=== PATIENT | female | born 1980 | race Caucasian/White ===

== ENCOUNTER → 2016-12-19 | Outpatient (CLI) | payer BC, OTHER ==
[~2016-12-19] MED LIST: CALC500C3; OXYC-57 PO; PEPCID
[2016-12-19 18:48] LABS: URINE APPEARANCE CLEAR (CLEAR); URINE BILIRUBIN NEG (NEG); URINE COLOR YELLOW; URINE NITRITE NEG (NEG); URINE SPECIFIC GRAVITY 1.027 (1.000-1.030); UROBILINOGEN NEG (NEG)
[2016-12-19 18:57] LABS: MANUAL MICROSCOPIC REQUIRED? NO; REVIEW REQ? NO
[2016-12-22 00:16] LABS: CHLAMYDIA TRACH RNA*** NOT DETECTED (NOT DETECTED); GC (NEIS GONORRHOEAE)RNA** NOT DETECTED (NOT DETECTED)
== END | disposition home or self-care (01) ==
LOC: C.LABSPEC 17:42
PROVIDERS: ATTEND Obstetrics & Gynecology
DX: R10.2 Pelvic and perineal pain (principal); N89.8 Other specified noninflammatory disorders of vagina; R35.0 Frequency of micturition

== ENCOUNTER 2017-05-19 20:36 | Emergency (ER) | payer OTHER ==
[~2017-05-19] VITALS: Ht 170.2 cm; Wt 85.9 kg
[~2017-05-19 20:36] MED LIST changes: -OXYC-57 PO
[2017-05-19 20:42] VITALS: TEMP 36.8; Ht 170.2 cm; Wt 85.9 kg
[2017-05-19] MEDS ORDERED: OPTIRAY 320 IV PRN (21:30)
[2017-05-19 21:39] LABS: BASO % 0.2 %; BASO ABS # 0.03 K/uL (0-0.2); COMPLETE YES; EOS % 0.2 %; HEMATOCRIT 39.5 % (37-47); IG% 0.3 %; LYMPH % 19.4 %; LYMPH ABS # 2.42 K/uL (1.2-3.4); MEAN CELL VOLUME 87.6 fL (80-100); MEAN CORPUSCULAR HEMOGLOBIN 28.8 pg (25-34); MEAN CORPUSCULAR HGB CONC 32.9 g/dl (32-36); MEAN PLATELET VOLUME 10.4 fL (7.4-10.4); MONO % 5.3 %; NEUT % 74.6 %; PLATELET COUNT 305 K/uL (130-400); RED BLOOD COUNT 4.51 M/uL (4.2-5.4); WHITE BLOOD COUNT 12.49 K/uL (4.8-10.8)
[2017-05-19 21:57] LABS: ISTAT CREATININE 0.6 mg/dl (0.6-1.3); ISTAT HEMOGLOBIN 13.6 g/dl (12.0-16.0); ISTAT IONIZED CALCIUM 1.16 mmol/l (1.12-1.32)
[2017-05-19 22:01] LABS: BUN/CREATININE RATIO 21.5 (10-20); CALCIUM 9.1 mg/dl (8.5-10.1); CREATININE 0.72 mg/dl (0.60-1.20); POTASSIUM 3.8 mmol/L (3.5-5.1)
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
[2017-05-19 23:07] VITALS: BP 129/70; PULSE 72; O2SAT 99
[2017-05-19] MEDS ORDERED: SODIUM CHLORIDE 0.9% 500ML 500 ML IV STA (23:07)
[2017-05-19] MEDS ORDERED: OXYC-57 PO (23:08)
[2017-05-19] MEDS ORDERED: PERCOCET HOME PACK PO ONE (23:15)
== END 2017-05-19 23:49 | disposition home or self-care (01) ==
LOC: C.EDB 20:38 → C.EDC 23:49
DX: M54.2 Cervicalgia (principal); S62.652A Nondisplaced fracture of middle phalanx of right middle finger, initial encounter for closed fracture; M79.645 Pain in left finger(s); Y04.2XXA Assault by strike against or bumped into by another person, initial encounter; Y04.8XXA Assault by other bodily force, initial encounter; Y07.03 Male partner, perpetrator of maltreatment and neglect; R52 Pain, unspecified

== ENCOUNTER → 2017-11-30 | Outpatient (CLI) | payer OTHER ==
[2017-11-30 12:08] LABS: BASO % 0.2 %; BASO ABS # 0.02 K/uL (0-0.2); EOS % 1.3 %; EOS ABS # 0.12 K/uL (0-0.5); HEMATOCRIT 39.1 % (37-47); HEMOGLOBIN 13.4 g/dL (12.0-16.0); IG# 0.05 K/uL (0.00-0.02); LYMPH % 20.9 %; LYMPH ABS # 1.86 K/uL (1.2-3.4); MEAN CELL VOLUME 86.1 fL (80-100); MEAN CORPUSCULAR HEMOGLOBIN 29.5 pg (25-34); MEAN CORPUSCULAR HGB CONC 34.3 g/dl (32-36); MEAN PLATELET VOLUME 11.1 fL (7.4-10.4); MONO % 5.3 %; MONO ABS # 0.47 K/uL (0.11-0.59); NEUT % 71.7 %; NEUT ABS # 6.37 K/uL (1.4-6.5); PLATELET COUNT 264 K/uL (130-400); RED CELL DISTRIBUTION WIDTH CV 13.6 % (11.5-14.5); RED CELL DISTRIBUTION WIDTH SD 42.9 fL (36.4-46.3); WHITE BLOOD COUNT 8.89 K/uL (4.8-10.8)
[2017-11-30 12:23] LABS: HEMOGLOBIN A1C 5.3 % (4.5-5.6)
== END | disposition home or self-care (01) ==
LOC: C.LAB1850 10:48
PROVIDERS: ATTEND Obstetrics & Gynecology
DX: O09.521 Supervision of elderly multigravida, first trimester (principal); Z3A.00 Weeks of gestation of pregnancy not specified

== ENCOUNTER → 2017-11-30 | Outpatient (CLI) | payer OTHER | END | disposition home or self-care (01) | LOC: C.LABSPEC 14:43 → C.PAPS 14:43 | PROVIDERS: ATTEND Obstetrics & Gynecology | DX: O09.521 Supervision of elderly multigravida, first trimester (principal); Z3A.00 Weeks of gestation of pregnancy not specified ==

== ENCOUNTER 2017-12-20 08:51 | Inpatient (IN) | payer OTHER ==
[2017-12-20] VITALS (7 sets, daily range): BP systolic 109–136; BP diastolic 70–80; PULSE 100–111; TEMP 37.4–38.9; O2SAT 96–100; Ht 170.2 cm; Wt 94.8 kg
[~2017-12-20] VITALS: Ht 170.2 cm; Wt 94.8 kg
[2017-12-20] MEDS ORDERED: ACETAMINOPHEN IV 100 ML IV STA (09:15)
[2017-12-20] MEDS ORDERED: MoRPHine SULFATE 10 MG/ML CARP/VIAL IV STA ×2 (09:15→10:56)
[2017-12-20] MEDS ORDERED: SODIUM CHLORIDE 0.9% 1000ML 1,000 ML IV STA ×3 (09:15→10:00)
--- NOTE | 2017-12-20 09:16 | EMERGENCY ROOM VISIT NOTE ---
History Report prepared by Miguelito: Jairo Benson Under the Supervision of: Dr. David Stanton M.D. First contact with patient: 09:05 Chief Complaint: ABDOMINAL PAIN Stated Complaint: TO BE EVALED IN ER, 4 MONTHS PREG, THINKS IN LABOR Nursing Triage Summary: pt is 4 months yesterday pt developed abd cramping this am became severe no vaginal discharge nausea for 2 months pt reports "feels like labor" History of Present Illness The patient is a 37 year old female who presents to the Emergency Room with complaints of severe and worsening abdominal pain that began yesterday. The patient notes that her abdominal pain began yesterday, and worsened significantly this morning. She describes her abdominal pain as a "cramping" sensation. The patient is currently 4 months in her 5th . She is P:4 A:0. She states that this cramping is not like she has experienced in the past. She denies any unusual vaginal bleeding, but admits that she has been light headed. She had a appendectomy when she was young. Source of History: patient Onset: yesterday Position: abdomen Symptom Intensity: severe Quality: cramping Timing: worsening Note: Lightheadedness, 4 months . Review of Systems See HPI for pertinent positives & negatives. A total of 10 systems reviewed and were otherwise negative. Past Medical & Surgical Medical Problems: (1) Abdominal pain (2) Postcoital bleeding (3) Supervision of elderly multigravida in third trimester (>=35 years old at time of delivery) Family History No pertinent family history Social History Smoking Status: Never Smoker Marital Status: single Housing Status: lives with family Current/Historical Medications No Active Prescriptions or Reported Meds Allergies Coded Allergies: No Known Allergies (Verified , 12/20/17) Physical Exam Vital Signs Date Time Temp Pulse Resp B/P (MAP) Pulse Ox O2 Delivery O2 Flow Rate FiO2 12/20/17 11:59 119 19 119/75 99 Room Air 12/20/17 11:37 119 12/20/17 09:57 102 22 131/68 100 12/20/17 08:59 37.9 118 20 121/72 100 Room Air Physical Exam GENERAL: Patient is a healthy-appearing well-nourished female. In mild distress. HEAD: Normocephalic atraumatic EYES: Ocular movements intact pupils equal and react to light OROPHARYNX mucous membranes are moist no exudates present no erythema or edema present NECK: Supple no nuchal rigidity CHEST: Good equal expansion LUNGS: Clear and equal to auscultation CARDIAC: Normal S1 and S2 ABDOMEN: Soft with tenderness to the suprapubic area. no guarding BACK: No CVA tenderness EXTREMITIES: No pain upon palpation normal muscle strength in all groups no clubbing cyanosis or edema NEURO: Patient is following commands and answering questions appropriately. Alert and oriented x3 Cranial Nerves 2-12 grossly intact Medical Decision & Procedures ER Provider Diagnostic Interpretation: Radiology results as stated below per my review and radiologist interpretation: CHEST ONE VIEW PORTABLE HISTORY: 37 years-old Female Pt c/o sepsis acute sepsis COMPARISON: None available TECHNIQUE: Portable AP view of the chest FINDINGS: Cardiomediastinal and hilar silhouettes are within normal limits. There is no pneumothorax, pleural effusion, focal airspace consolidation or overt pulmonary edema. The bones of the chest appear grossly intact. Mild degenerative changes of the left AC joint. IMPRESSION: No acute process. The above report was generated using voice recognition software. It may contain grammatical, syntax or spelling errors. Electronically signed by: Zach Watson M.D. 12/20/2017 10:41 AM Dictated Date/Time: 12/20/2017 10:40 AM LIMITED (US) CLINICAL HISTORY: 37 years-old Female presenting with Pt feels is in labor, estimated date of delivery by last menstrual period 06/15/2018, no bleeding, cramping. TECHNIQUE: Real-time grayscale and M-mode Doppler ultrasound imaging of the pelvis was performed using a transabdominal probe. Color and spectral Doppler ultrasound imaging of the adnexa was not performed as the ovaries were not visualized. COMPARISON: 12/05/2017. FINDINGS: Uterus: Single live intrauterine . Femur length measures 14 mm corresponding to a gestational age of 14 weeks 1 day. [place]-rump length measures 83 mm corresponding to a gestational age of 14 weeks 1 day. heart rate 154 beats per minute. Anteverted uterus. Normal amniotic fluid volume. Posterior placental implantation. No perigestational fluid to suggest hemorrhage. Cervix long and closed, measuring 4.6 cm. Right adnexa: Right ovary not visualized. Left adnexa: Left ovary not visualized. Other: No free fluid. IMPRESSION: Single live intrauterine with an estimated gestational age of 14 weeks 1 day. No sonographic abnormality. Electronically signed by: Gumaro Posada M.D. 12/20/2017 10:29 AM Dictated Date/Time: 12/20/2017 10:26 AM Laboratory Results 12/20/17 09:31 Red Blood Count 4.31, Mean Corpuscular Volume 85.6, Mean Corpuscular Hemoglobin 29.9, Mean Corpuscular Hemoglobin Concent 35.0, Mean Platelet Volume 9.9, Neutrophils (%) (Auto) 88.9, Lymphocytes (%) (Auto) 5.6, Monocytes (%) (Auto) 4.7, Eosinophils (%) (Auto) 0.3, Basophils (%) (Auto) 0.1, Neutrophils # (Auto) 16.32, Lymphocytes # (Auto) 1.02, Monocytes # (Auto) 0.86, Eosinophils # (Auto) 0.05, Basophils # (Auto) 0.02 12/20/17 09:31 Test 12/20/17 00:00 12/20/17 09:31 12/20/17 09:35 12/20/17 09:42 White Blood Count 18.35 K/uL (4.8-10.8) Red Blood Count 4.31 M/uL (4.2-5.4) Hemoglobin 12.9 g/dL (12.0-16.0) Hematocrit 36.9 % (37-47) Mean Corpuscular Volume 85.6 fL (80-100) Mean Corpuscular Hemoglobin 29.9 pg (25-34) Mean Corpuscular Hemoglobin Concent 35.0 g/dl (32-36) Platelet Count 202 K/uL (130-400) Mean Platelet Volume 9.9 fL (7.4-10.4) Neutrophils (%) (Auto) 88.9 % Lymphocytes (%) (Auto) 5.6 % Monocytes (%) (Auto) 4.7 % Eosinophils (%) (Auto) 0.3 % Basophils (%) (Auto) 0.1 % Neutrophils # (Auto) 16.32 K/uL (1.4-6.5) Lymphocytes # (Auto) 1.02 K/uL (1.2-3.4) Monocytes # (Auto) 0.86 K/uL (0.11-0.59) Eosinophils # (Auto) 0.05 K/uL (0-0.5) Basophils # (Auto) 0.02 K/uL (0-0.2) RDW Standard Deviation 43.7 fL (36.4-46.3) RDW Coefficient of Variation 13.9 % (11.5-14.5) Immature Granulocyte % (Auto) 0.4 % Immature Granulocyte # (Auto) 0.08 K/uL (0.00-0.02) Prothrombin Time 9.6 SECONDS (9.0-12.0) Prothromb Time International Ratio 0.9 (0.9-1.1) Activated Partial Thromboplast Time 25.6 SECONDS (21.0-31.0) Partial Thromboplastin Ratio 1.0 Est Creatinine Clear Calc Drug Dose 169.2 ml/min Estimated GFR () 139.6 Estimated GFR (Non- 120.4 BUN/Creatinine Ratio 15.8 (10-20) Calcium Level 8.6 mg/dl (8.5-10.1) Total Bilirubin 0.3 mg/dl (0.2-1) Aspartate Amino Transf (AST/SGOT) 9 U/L (15-37) Alanine Aminotransferase (ALT/SGPT) 12 U/L (12-78) Alkaline Phosphatase 49 U/L (45-117) Total Protein 7.0 gm/dl (6.4-8.2) Albumin 2.9 gm/dl (3.4-5.0) Globulin 4.1 gm/dl (2.5-4.0) Albumin/Globulin Ratio 0.7 (0.9-2) Procalcitonin < 0.05 ng/ml (0-0.5) Human Chorionic Gonadotropin, Quant 93398 mIU/mL Influenza Type A (RT-PCR) Neg for Influ A (NEG) Influenza Type A Antigen Neg for Influ A (NEG) Influenza Type B Antigen Neg for Influ B (NEG) Influenza Type B (RT-PCR) Neg for Influ B (NEG) Bedside Lactic Acid Venous 0.94 mmol/L (0.90-1.70) Test 12/20/17 09:46 12/20/17 10:53 Bedside Hemoglobin 12.6 g/dl (12.0-16.0) Bedside Hematocrit 37 % (37-47) Bedside Sodium 136 mEq/L (135-144) Bedside Potassium 3.5 mEq/L (3.3-5.0) Bedside Chloride 99 mEq/L (101-112) Bedside Total CO2 24 mEq/l (24-31) Anion Gap 18.0 mmol/L (16-25) Bedside Blood Urea Nitrogen 8 mg/dl (7-18) Bedside Creatinine 0.5 mg/dl (0.6-1.3) Bedside Glucose (other) 91 mg/dl (70-99) Bedside Ionized Calcium (Mini) 1.18 mmol/l (1.12-1.32) Urine Color YELLOW Urine Appearance CLEAR (CLEAR) Urine pH 6.0 (4.5-7.5) Urine Specific [place] 1.008 (1.000-1.030) Urine Protein NEG (NEG) Urine Glucose (UA) NEG (NEG) Urine Ketones TRACE (NEG) Urine Occult Blood NEG (NEG) Urine Nitrite NEG (NEG) Urine Bilirubin NEG (NEG) Urine Urobilinogen NEG (NEG) Urine Leukocyte Esterase NEG (NEG) Labs reviewed by ED physician. Medications Administered Medications (Trade) Dose Ordered Sig/Anshu Route Start Time Stop Time Status Last Admin Dose Admin Sodium Chloride 1,000 ml @ 999 mls/hr Q1H1M STAT IV 12/20/17 09:15 12/20/17 10:15 DC 12/20/17 09:43 999 MLS/HR Acetaminophen 100 ml @ 400 mls/hr NOW STAT IV 12/20/17 09:15 12/20/17 09:29 DC 12/20/17 10:56 400 MLS/HR Morphine Sulfate (MoRPHine SULFATE INJ) 6 mg NOW STAT IV 12/20/17 09:15 12/20/17 09:18 DC 12/20/17 09:53 6 MG Sodium Chloride 1,000 ml @ 999 mls/hr Q1H1M STAT IV 12/20/17 09:28 12/20/17 10:28 DC 12/20/17 09:43 999 MLS/HR Potassium Chloride (Nanette Ciel Elix) 40 meq NOW STAT PO 12/20/17 09:49 12/20/17 09:50 DC 12/20/17 10:46 40 MEQ Sodium Chloride 1,000 ml @ 999 mls/hr Q1H1M STAT IV 12/20/17 10:00 12/20/17 11:00 DC 12/20/17 11:28 999 MLS/HR Cefepime HCl 2000 mg/Dextrose 122 ml @ 200 mls/hr NOW STAT IV 12/20/17 10:05 12/20/17 10:41 DC 12/20/17 10:49 200 MLS/HR Vancomycin HCl (Vancomycin 1gm/ 270ml Nss) 1 gm NOW STAT IV 12/20/17 10:05 12/20/17 10:07 DC 12/20/17 11:28 1 GM Morphine Sulfate (MoRPHine SULFATE INJ) 6 mg NOW STAT IV 12/20/17 10:56 12/20/17 10:57 DC 12/20/17 12:01 6 MG Ondansetron HCl (Zofran Inj) 4 mg NOW STAT IV 12/20/17 10:56 12/20/17 10:57 DC 12/20/17 12:00 4 MG Sodium Chloride 1,000 ml @ 50 mls/hr Q20H IV 12/20/17 12:54 12/21/17 00:59 DC 12/20/17 16:03 50 MLS/HR Acetaminophen (Tylenol Tab) 650 mg Q4H PRN PO 12/20/17 13:00 12/21/17 00:59 DC 12/20/17 21:00 650 MG ED Course 0910: Past medical records reviewed. The patient was evaluated in room B5. A complete history and physical examination was performed. 0915: Ordered Morphine Sulfate 6 mg IV, Acetaminophen 100 mL @ 400 mL/hr IV, Sodium Chloride 1000 mL @ 999 mL/hr IV. 0928: Ordered Sodium Chloride 1000 mL @ 999 mL/hr IV. 0949: Ordered Potassium Chloride 40 meq PO. 1000: Ordered Sodium Chloride 1000 mL @ 999 mL/hr IV. 1003: I discussed the case with Pharmacy at this time for antibiotic suggestions due to the patient's current . 1005: Ordered Vancomycin HCl 1 gm IV, Cefepime HCl 122 mL @ 200 mL/hr IV. 1008: I discussed the case with Dr. Khadar TIJERINA. He states that the patient is not in danger of going into labor, suggests discussion with hospitalist service for inpatient evaluation. 1028: I went to [facility] with the patient to observe the imaging. 1043: I discussed the case with Dr. Curtis Gómez Hospitalist. He will evaluate the patient though believes that she will likely need to be transferred to another location. 1109: I just had a consultation meeting with Dr. Rubalcava and Dr. Acevedo. Curtis will likely accept the patient for further treatment. We have decided to start Tamiflu and hold off on the CT Scan. 1147: I discussed the case with [facility] at this time. They have refused the patient. 1151: Curtis is now speaking with the [facility]. 1321: The patient is refusing Tamiflu at this time. Medical Decision Differential diagnosis: Etiologies such as appendicitis, diverticulitis, PUD, biliary pathology, UTI, pancreatitis, obstruction, mesenteric ischemia, aortic pathology, infections, inflammatory bowel disease, renal colic, as well as others were entertained. This is a 37-year-old female who presents emergency department complaining of abdominal pain. The patient feels like she is in labor. Due to the patient's fever as well as her tachycardia an IV was immediately established and I immediately began fluids as well as Tylenol on this patient. She was then emergently sent for ultrasound. I supervised the ultrasound myself and did not see any evidence of hydronephrosis and the patient's gallbladder is normal. In addition the patient has had her appendix out it was not visualized on ultrasound. Over concerns that the patient was septic and due to the high mortality associated with the flu this year the patient was started on empiric antibiotic including cefepime and vancomycin. I discussed this with the pharmacy due to concern for the patient's . The patient was also given morphine so that she could tolerate her ultrasound. She was given 30 mL' s per kilogram of fluid. Repeat examination revealed much improvement in the patient's pain. Immediately after ultrasound I did discuss this case with the retail pricing coordinator on-call who was kind enough to see the patient. I recommended to the patient that we receive a chest x-ray as well as a CAT scan of the abdomen and pelvis. Chest x-ray does not show any acute process. She was started on Tamiflu even though her flu swab is negative again due to the high mortality of this seasons influenza. After discussing the patient with the hospital service they recommended that we transfer the patient to [facility] for tertiary care however [facility] is adamantly refusing the patient. The patient was then admitted to the hospitalist. Medication Reconcilliation Current Medication List: was personally reviewed by me Blood Pressure Screening Patient's blood pressure: Normal blood pressure Consults Time Called: 1035 Consulting Physician: Dr. Curtis Gómez Hospitalist Returned Call: 1043 I discussed the case with Dr. Curtis Gómez Hospitalist. He will evaluate the patient though believes that she will likely need to be transferred to another location. Additional Consults: Time Called: 1005 Consulted Physician: Dr. Khadar TIJERINA Returned Call: 1008 Additional Comments: I discussed the case with Dr. Khadar TIJERINA. He states that the patient is not in danger of going into labor, suggests discussion with hospitalist service for inpatient evaluation. Time Called: 1300 Consulted Physician: Dr. Cormier - [facility] ICU Returned Call: 1302 Impression Primary Impression: Sepsis Additional Impressions: Abdominal pain Critical Care I have personally spent greater than 90 minutes of critical care time in the direct management of this patient. This includes bedside care, interpretation of diagnostic studies, and testing, discussion with consultants, patient, and family members, and other required patient management activities. This 90 minutes is in excess of all separately billable procedures. Scribe Attestation The scribe's documentation has been prepared under my direction and personally reviewed by me in its entirety. I confirm that the note above accurately reflects all work, treatment, procedures, and medical decision making performed by me. Departure Information Dispostion Being Evaluated By Hospitalist Prescriptions No Active Prescriptions or Reported Meds Referrals RV. Abbasi MD (PCP) Patient Instructions My [facility] Problem Qualifiers Primary Impression: Sepsis Sepsis type: sepsis due to unspecified organism Qualified Codes: A41.9 - Sepsis, unspecified organism Additional Impressions: Abdominal pain Abdominal location: generalized Qualified Codes: R10.84 - Generalized abdominal pain Weeks of gestation: 14 weeks Qualified Codes: Z3A.14 - 14 weeks gestation of
[2017-12-20] MEDS ORDERED: POTASSIUM CHLORIDE 20 MEQ/15 ML UDC PO STA (09:49)
[2017-12-20 09:56] LABS: HEMATOCRIT 36.9 % (37-47); HEMOGLOBIN 12.9 g/dL (12.0-16.0); MEAN CELL VOLUME 85.6 fL (80-100); MEAN CORPUSCULAR HEMOGLOBIN 29.9 pg (25-34); MEAN PLATELET VOLUME 9.9 fL (7.4-10.4); PLATELET COUNT 202 K/uL (130-400); RED CELL DISTRIBUTION WIDTH CV 13.9 % (11.5-14.5); RED CELL DISTRIBUTION WIDTH SD 43.7 fL (36.4-46.3); WHITE BLOOD COUNT 18.35 K/uL (4.8-10.8)
[2017-12-20 09:59] LABS: ISTAT CREATININE 0.5 mg/dl (0.6-1.3); ISTAT IONIZED CALCIUM 1.18 mmol/l (1.12-1.32); ISTAT POTASSIUM 3.5 mEq/L (3.3-5.0)
[2017-12-20] MEDS ORDERED: VANCOMYCIN 1GM/270ML NSS IV STA ×2 (10:05→15:16)
[2017-12-20] MEDS ORDERED: CEFEPIME IV 2,000 MG in DEXTROSE 5% 100ML 100 ML IV STA (10:05)
[2017-12-20 10:06] LABS: INR 0.9 (0.9-1.1); PTT PATIENT 25.6 SECONDS (21.0-31.0)
[2017-12-20 10:16] LABS: ALBUMIN 2.9 gm/dl (3.4-5.0); CALCIUM 8.6 mg/dl (8.5-10.1); CREATININE 0.53 mg/dl (0.60-1.20); POTASSIUM 3.5 mmol/L (3.5-5.1)
[2017-12-20 10:18] LABS: BASO % 0.1 %; BASO ABS # 0.02 K/uL (0-0.2); EOS % 0.3 %; EOS ABS # 0.05 K/uL (0-0.5); IG# 0.08 K/uL (0.00-0.02); LYMPH % 5.6 %; LYMPH ABS # 1.02 K/uL (1.2-3.4); MONO % 4.7 %; MONO ABS # 0.86 K/uL (0.11-0.59); NEUT % 88.9 %; NEUT ABS # 16.32 K/uL (1.4-6.5)
--- NOTE | 2017-12-20 10:30 | DIAGNOSTIC IMAGING REPORT ---
LIMITED (US) CLINICAL HISTORY: 37 years-old Female presenting with Pt feels is in labor, estimated date of delivery by last menstrual period 06/15/2018, no bleeding, cramping. TECHNIQUE: Real-time grayscale and M-mode Doppler ultrasound imaging of the pelvis was performed using a transabdominal probe. Color and spectral Doppler ultrasound imaging of the adnexa was not performed as the ovaries were not visualized. COMPARISON: 12/05/2017. FINDINGS: Uterus: Single live intrauterine . Femur length measures 14 mm corresponding to a gestational age of 14 weeks 1 day. [place]-rump length measures 83 mm corresponding to a gestational age of 14 weeks 1 day. heart rate 154 beats per minute. Anteverted uterus. Normal amniotic fluid volume. Posterior placental implantation. No perigestational fluid to suggest hemorrhage. Cervix long and closed, measuring 4.6 cm. Right adnexa: Right ovary not visualized. Left adnexa: Left ovary not visualized. Other: No free fluid. IMPRESSION: Single live intrauterine with an estimated gestational age of 14 weeks 1 day. No sonographic abnormality. Electronically signed by: Gumaro Posada M.D. 12/20/2017 10:29 AM Dictated Date/Time: 12/20/2017 10:26 AM
[2017-12-20 10:37] LABS: INFLUENZA B ANTIGEN Neg for Influ B (NEG)
--- NOTE | 2017-12-20 10:42 | DIAGNOSTIC IMAGING REPORT ---
CHEST ONE VIEW PORTABLE HISTORY: 37 years-old Female Pt c/o sepsis acute sepsis COMPARISON: None available TECHNIQUE: Portable AP view of the chest FINDINGS: Cardiomediastinal and hilar silhouettes are within normal limits. There is no pneumothorax, pleural effusion, focal airspace consolidation or overt pulmonary edema. The bones of the chest appear grossly intact. Mild degenerative changes of the left AC joint. IMPRESSION: No acute process. The above report was generated using voice recognition software. It may contain grammatical, syntax or spelling errors. Electronically signed by: Zach Watson M.D. 12/20/2017 10:41 AM Dictated Date/Time: 12/20/2017 10:40 AM
[2017-12-20] MEDS ORDERED: OSELTAMIVIR PHOSPHATE 75 MG CAP PO STA (10:56)
[2017-12-20] MEDS ORDERED: ONDANSETRON INJ 2 MG/ML 2 ML VIAL IV STA (10:56)
[2017-12-20] MEDS ORDERED: PIPERACILLIN/TAZOBACTAM 4.5 GM/100ML D5W IV STA (11:31)
[2017-12-20] MEDS ORDERED: SODIUM CHLORIDE 0.9% 1000ML 1,000 ML IV SCH (12:54)
[2017-12-20] MEDS ORDERED: ALUMINUM/MAGNESIUM/SIMETH (MAALOX MAX) 30 ML UDC PO PRN (13:00)
[2017-12-20] MEDS ORDERED: MAGNESIUM HYDROXIDE SUSP 30 ML UDC PO PRN (13:00)
[2017-12-20] MEDS ORDERED: POLYETHYLENE (MIRALAX) 17 GM PACK PO PRN (13:00)
[2017-12-20] MEDS ORDERED: ONDANSETRON INJ 2 MG/ML 2 ML VIAL IV PRN (13:00)
[2017-12-20] MEDS ORDERED: PHARMACY CONSULT IN PROGRESS PRN (14:00)
[2017-12-20] MEDS ORDERED: VANCOMYCIN CONSULT ACTIVE PRN (14:00)
--- NOTE | 2017-12-20 14:26 | GYNECOLOGICAL CONSULTATION ---
DATE OF CONSULTATION: 12/20/2017 REQUESTING PHYSICIAN: Dr. Antony Acevedo. INDICATION: Probable sepsis at 14+ weeks' gestational age. ADMISSION HISTORY: The patient is a 37-year-old 5, para 4 with an EDC of 15 June by first trimester ultrasound, who is admitted from the Emergency Room to the hospitalist service for apparent sepsis. The patient began to develop some generalized malaise over the last day or so with generalized aching and lower abdominal cramping and pain. She has been having nausea, but that has been going along with the . She began to feel worse over the last several hours with lower abdominal cramping. She is not complaining of any dysuria or urinary frequency. She is not complaining of any vaginal discharge, vaginal bleeding or leaking of fluid. The patient became so uncomfortable that she presented to the Emergency Room for evaluation. Evaluation in the Emergency Room showed an elevated temperature as well as an elevated white count and the patient has been admitted to the hospitalist service for presumed sepsis. The patient has been seen only one time in this for her new OB check, which was done on 30 November. At that time, she presented for her new OB care. She had a dating ultrasound, which established her EDC of 15 June. The patient also had laboratory values including a negative chlamydia and gonorrhea done at that test. The patient because of advanced maternal age, had cell-free DNA testing done, which showed a 46XX karyotype. PAST MEDICAL HISTORY: OBSTETRICAL: x4. GYNECOLOGICAL: None. MEDICAL: Borderline elevated glucoses. SURGICAL: Appendectomy. ALLERGIES: No known drug allergies. SOCIAL HISTORY: No smoking. FAMILY HISTORY: Noncontributory. REVIEW OF SYSTEMS: As per HPI. PHYSICAL EXAMINATION: GENERAL: Shows a gravid female, uncomfortable, but in no acute distress. VITAL SIGNS: Blood pressure 121/72 and a temp of 37.9. ABDOMEN: Soft. Tender to palpation in the lower quadrants, but no rebound, no guarding, and no organomegaly. Positive bowel sounds. PELVIC: Shows normal external genitalia. The vaginal vault is pink and rugated. The cervical os is multiparous and closed. Bimanual examination shows a 14-16 week size mobile uterus with no cervical motion tenderness. No uterine tenderness. EXTREMITIES: Shows no deep calf tenderness. NEUROLOGIC: Grossly intact. Radiological evaluation shows a viveros intrauterine with crown rump length appropriate for dates, normal fluid and long cervix. No evidence of abruption. IMPRESSION: A 37-year-old 5, para 4, 14+ weeks gestational age, elevated white count and temperature. PLAN: Etiology of the patient's elevated white blood cell count and fever not clear. From an obstetrical standpoint, I cannot think of anything that is contributing to the symptoms the patient has. The patient has no cervical motion tenderness and no real uterine tenderness. She has no evidence of rupture of membranes. PID in is exceedingly rare and with no peritoneal signs and a negative culture just 10 days ago. I do not believe that is a contributing factor. I have discussed the case with the hospitalist service and I believe management as appropriate and if there are questions about how management can affect the , guidance will be given. I see no contraindications to the antibiotic that had been ordered by the hospitalist service. If further radiographical evaluation is considered, they will contact me. At this point, the is not close to viability. As such, all decision should be directed towards the management of the patient and not the fetus. We will continue to follow along with the hospitalist service and will be available for any questions.
--- NOTE | 2017-12-20 14:43 | History and Physical ---
History & Physical Date & Time of Service: Dec 20, 2017 at 14:29 Chief Complaint: To Be Evaled In Er, 4 Months Preg, Thinks In Labor Primary Care Physician: RV. Abbasi MD History of Present Illness Source: patient, hospital records 37 years old female para 4 5, A 0, 4 months who was in her regular state of health until a few days ago. Her complaint started with mild pain during sexual intercourse in the pelvic area. 2 days ago pain became more intense and she was unable to tolerate her dyspareunia Today she woke up from sleep with severe lower abdominal pain. 10 out of 10. Associated with abdominal cramps and muscle ache. Denies any upper respiratory tract symptoms. She presented to the hospital and she was found to have high temperature of 37.9 All her previous pregnancies were healthy, she did not have any complication. This up until now was normal except for exaggerated nausea and vomiting. Past Medical/Surgical History Medical Problems: (1) Postcoital bleeding Status: Resolved Family History No pertinent family history Social History Smoking Status: Never Smoker Marital Status: single Immunizations History of Influenza Vaccine: Unknown History of Tetanus Vaccine?: Unknown History of Pneumococcal: Unknown History of Hepatitis B Vaccine: Unknown Multi-Drug Resistant Organisms History of MDRO: No Allergies Coded Allergies: No Known Allergies (Verified , 12/20/17) Home Medications No Active Prescriptions or Reported Meds Review of Systems Review of system Constitutional: fever / chills / no sweats / no weakness / no fatigue Eyes: no blurring of vision / no eye pain / no discharge / no redness ENT: no hearing loss / no epistaxis /no swallowing problems Respiratory: no cough / no wheezing / no SOB / no hemoptysis Cardiovascular: no Chest pain / no lower extremity edema / no palpitation Abdomen: pain lower abdomen area with cramping/ no nausea / no vomiting / no constipation Musculoskeletal: no joint pain / no muscle pain / no joint swelling Genitourinary: no dysuria / no incontinence / no urinary retention Neurologic: no focal weakness / no numbness/tingling / no ataxia Psychiatric: no depression symptoms / no anxiety / no insomnia Endocrine: no excessive thirst / no excessive urination Hematologic: no abnormal bleeding / no bruising / no LN swelling Skin: No rash / no pallor Constitutional: + fever, + chills Physical Exam Vital Signs Date Time Temp Pulse Resp B/P (MAP) Pulse Ox O2 Delivery O2 Flow Rate FiO2 12/20/17 13:59 37.0 108 20 127/64 99 Room Air 12/20/17 13:15 104 12/20/17 11:59 119 19 119/75 99 Room Air 12/20/17 11:37 119 12/20/17 09:57 102 22 131/68 100 12/20/17 08:59 37.9 118 20 121/72 100 Room Air Physical examination General patient appears to be comfortable, not in acute distress HEENT: Atraumatic , normocephalic /no jaundice /no pallor /anicteric /no dry mucous membrane /normal external ear inspection Neck: Supple /no swelling /central trach Heart: S1/S2 normal/regular rate and rhythm/no gallop /no rub /no murmur Lungs: Clear to auscultation bilaterally/normal chest with expansion/no rhonchi/ no rales/no wheezing/no use of accessory muscles of respiration Abdomen: Soft/slightly tender in the lower abdomen area, I could not push hard due to /no guarding/no rebound/no organomegaly/no pulsatile mass Musculoskeletal: No swelling/no edema/no tenderness/normal range of motion Neuro exam: Awake alert oriented 3/cranial nerves II through XII appear to be intact/sensation intact/moves all extremities/no abnormal movements Psychiatric evaluation: No depressed mood/normal affect Skin: No rash on exposed skin area/no erythema Extremity: Normal pulse/no pitting edema/no clubbing or cyanosis Endocrine/lymphatic: No obvious lymphadenopathy /no lymphedema Diagnostics Laboratory Results Results Past 24 Hours Test 12/20/17 09:31 12/20/17 09:35 12/20/17 09:42 12/20/17 09:46 Range/Units White Blood Count 18.35 4.8-10.8 K/uL Red Blood Count 4.31 4.2-5.4 M/uL Hemoglobin 12.9 12.0-16.0 g/dL Hematocrit 36.9 37-47 % Mean Corpuscular Volume 85.6 80-100 fL Mean Corpuscular Hemoglobin 29.9 25-34 pg Mean Corpuscular Hemoglobin Concent 35.0 32-36 g/dl Platelet Count 202 130-400 K/uL Mean Platelet Volume 9.9 7.4-10.4 fL Neutrophils (%) (Auto) 88.9 % Lymphocytes (%) (Auto) 5.6 % Monocytes (%) (Auto) 4.7 % Eosinophils (%) (Auto) 0.3 % Basophils (%) (Auto) 0.1 % Neutrophils # (Auto) 16.32 1.4-6.5 K/uL Lymphocytes # (Auto) 1.02 1.2-3.4 K/uL Monocytes # (Auto) 0.86 0.11-0.59 K/uL Eosinophils # (Auto) 0.05 0-0.5 K/uL Basophils # (Auto) 0.02 0-0.2 K/uL RDW Standard Deviation 43.7 36.4-46.3 fL RDW Coefficient of Variation 13.9 11.5-14.5 % Immature Granulocyte % (Auto) 0.4 % Immature Granulocyte # (Auto) 0.08 0.00-0.02 K/uL Prothrombin Time 9.6 9.0-12.0 SECONDS Prothromb Time International Ratio 0.9 0.9-1.1 Activated Partial Thromboplast Time 25.6 21.0-31.0 SECONDS Partial Thromboplastin Ratio 1.0 Sodium Level 135 136-145 mmol/L Potassium Level 3.5 3.5-5.1 mmol/L Chloride Level 102 98-107 mmol/L Carbon Dioxide Level 25 21-32 mmol/L Anion Gap 8.0 18.0 16-25 mmol/L Blood Urea Nitrogen 8 7-18 mg/dl Creatinine 0.53 0.60-1.20 mg/dl Est Creatinine Clear Calc Drug Dose 169.2 ml/min Estimated GFR () 139.6 Estimated GFR (Non- 120.4 BUN/Creatinine Ratio 15.8 10-20 Random Glucose 84 70-99 mg/dl Calcium Level 8.6 8.5-10.1 mg/dl Total Bilirubin 0.3 0.2-1 mg/dl Aspartate Amino Transf (AST/SGOT) 9 15-37 U/L Alanine Aminotransferase (ALT/SGPT) 12 12-78 U/L Alkaline Phosphatase 49 45-117 U/L Total Protein 7.0 6.4-8.2 gm/dl Albumin 2.9 3.4-5.0 gm/dl Globulin 4.1 2.5-4.0 gm/dl Albumin/Globulin Ratio 0.7 0.9-2 Procalcitonin < 0.05 0-0.5 ng/ml Human Chorionic Gonadotropin, Quant 30070 mIU/mL Influenza Type A Antigen Neg for Influ A NEG Influenza Type B Antigen Neg for Influ B NEG Bedside Lactic Acid Venous 0.94 0.90-1.70 mmol/L Bedside Hemoglobin 12.6 12.0-16.0 g/dl Bedside Hematocrit 37 37-47 % Bedside Sodium 136 135-144 mEq/L Bedside Potassium 3.5 3.3-5.0 mEq/L Bedside Chloride 99 101-112 mEq/L Bedside Total CO2 24 24-31 mEq/l Bedside Blood Urea Nitrogen 8 7-18 mg/dl Bedside Creatinine 0.5 0.6-1.3 mg/dl Bedside Glucose (other) 91 70-99 mg/dl Bedside Ionized Calcium (Mini) 1.18 1.12-1.32 mmol/l Test 12/20/17 10:53 Range/Units Urine Color YELLOW Urine Appearance CLEAR CLEAR Urine pH 6.0 4.5-7.5 Urine Specific [place] 1.008 1.000-1.030 Urine Protein NEG NEG Urine Glucose (UA) NEG NEG Urine Ketones TRACE NEG Urine Occult Blood NEG NEG Urine Nitrite NEG NEG Urine Bilirubin NEG NEG Urine Urobilinogen NEG NEG Urine Leukocyte Esterase NEG NEG Microbiology Results 12/20/17 Blood Culture, Received Pending 12/20/17 Blood Culture, Received Pending Impression Assessment and Plan 37-year-old female 5, para 4, 0 Currently 14 weeks presented to the hospital with lower abdominal pain/ cramping/dyspareunia Assessment Lower abdominal pain/cramping/dyspareunia 14 weeks Severe sepsis present on admission with no evident source of infection Plan For fear of her sudden deterioration we both me and Dr. Stanton attempted to transfer her to a higher level of care, but obstetric physician in [facility] refused the transfer. Admit to telemetry Initially she was covered for PID with vancomycin, received 1 dose of azithromycin, and cefepime Obstetric consultation was obtained by Dr. Rubalcava, based on his medical physical exam and probability he did not think she has PID, especially that it is rare in Ultrasound abdomen was normal Antibiotics were switched to ertapenem and Vanco. She was also covered by Tamiflu empirically Blood cultures/urine cultures obtained Rapid flu was negative but patient is empirically on Tamiflu, PCR was sent Consult infectious diseases So because the pain is localized in the abdominal area surgical consult was obtained We will place her on DVT prophylaxis heparin subcu, as risk of DVT is higher in and she is bed resting all the time At this point myself, Dr. Stanton, and Dr. Rubalcava did not think a CT abdomen would be warranted since her vitals are more stabilized. Also ordered pro-calcitonin VTE Prophylaxis VTE Risk Assessment Done? Y/N: Yes Risk Level: Moderate
--- NOTE | 2017-12-20 15:54 | Pharmacy Progress Note ---
Pharmacy Antibiotic Consult Date of Service: Dec 20, 2017. Pharmacy Dosing Scope Pharmacy is consulted to initiate vancomycin IV dosing therapy, order appropriate labs and adjust drug dose/frequency. Subjective The patient is a 37 year old female admitted on 12/20. Objective Height (Feet): 5 Height (Inches): 7.00 Weight (Kilograms): 93.700 Lab Results (24hrs): Test 12/20/17 09:31 12/20/17 09:35 12/20/17 09:42 12/20/17 09:46 White Blood Count 18.35 K/uL (4.8-10.8) Red Blood Count 4.31 M/uL (4.2-5.4) Hemoglobin 12.9 g/dL (12.0-16.0) Hematocrit 36.9 % (37-47) Mean Corpuscular Volume 85.6 fL (80-100) Mean Corpuscular Hemoglobin 29.9 pg (25-34) Mean Corpuscular Hemoglobin Concent 35.0 g/dl (32-36) Platelet Count 202 K/uL (130-400) Mean Platelet Volume 9.9 fL (7.4-10.4) Neutrophils (%) (Auto) 88.9 % Lymphocytes (%) (Auto) 5.6 % Monocytes (%) (Auto) 4.7 % Eosinophils (%) (Auto) 0.3 % Basophils (%) (Auto) 0.1 % Neutrophils # (Auto) 16.32 K/uL (1.4-6.5) Lymphocytes # (Auto) 1.02 K/uL (1.2-3.4) Monocytes # (Auto) 0.86 K/uL (0.11-0.59) Eosinophils # (Auto) 0.05 K/uL (0-0.5) Basophils # (Auto) 0.02 K/uL (0-0.2) RDW Standard Deviation 43.7 fL (36.4-46.3) RDW Coefficient of Variation 13.9 % (11.5-14.5) Immature Granulocyte % (Auto) 0.4 % Immature Granulocyte # (Auto) 0.08 K/uL (0.00-0.02) Prothrombin Time 9.6 SECONDS (9.0-12.0) Prothromb Time International Ratio 0.9 (0.9-1.1) Activated Partial Thromboplast Time 25.6 SECONDS (21.0-31.0) Partial Thromboplastin Ratio 1.0 Sodium Level 135 mmol/L (136-145) Potassium Level 3.5 mmol/L (3.5-5.1) Chloride Level 102 mmol/L (98-107) Carbon Dioxide Level 25 mmol/L (21-32) Anion Gap 8.0 mmol/L (3-11) 18.0 mmol/L (16-25) Blood Urea Nitrogen 8 mg/dl (7-18) Creatinine 0.53 mg/dl (0.60-1.20) Est Creatinine Clear Calc Drug Dose 169.2 ml/min Estimated GFR () 139.6 Estimated GFR (Non- 120.4 BUN/Creatinine Ratio 15.8 (10-20) Random Glucose 84 mg/dl (70-99) Calcium Level 8.6 mg/dl (8.5-10.1) Total Bilirubin 0.3 mg/dl (0.2-1) Aspartate Amino Transf (AST/SGOT) 9 U/L (15-37) Alanine Aminotransferase (ALT/SGPT) 12 U/L (12-78) Alkaline Phosphatase 49 U/L (45-117) Total Protein 7.0 gm/dl (6.4-8.2) Albumin 2.9 gm/dl (3.4-5.0) Globulin 4.1 gm/dl (2.5-4.0) Albumin/Globulin Ratio 0.7 (0.9-2) Procalcitonin < 0.05 ng/ml (0-0.5) Human Chorionic Gonadotropin, Quant 53813 mIU/mL Influenza Type A Antigen Neg for Influ A (NEG) Influenza Type B Antigen Neg for Influ B (NEG) Bedside Lactic Acid Venous 0.94 mmol/L (0.90-1.70) Bedside Hemoglobin 12.6 g/dl (12.0-16.0) Bedside Hematocrit 37 % (37-47) Bedside Sodium 136 mEq/L (135-144) Bedside Potassium 3.5 mEq/L (3.3-5.0) Bedside Chloride 99 mEq/L (101-112) Bedside Total CO2 24 mEq/l (24-31) Bedside Blood Urea Nitrogen 8 mg/dl (7-18) Bedside Creatinine 0.5 mg/dl (0.6-1.3) Bedside Glucose (other) 91 mg/dl (70-99) Bedside Ionized Calcium (Mini) 1.18 mmol/l (1.12-1.32) Test 12/20/17 10:53 Urine Color YELLOW Urine Appearance CLEAR (CLEAR) Urine pH 6.0 (4.5-7.5) Urine Specific [place] 1.008 (1.000-1.030) Urine Protein NEG (NEG) Urine Glucose (UA) NEG (NEG) Urine Ketones TRACE (NEG) Urine Occult Blood NEG (NEG) Urine Nitrite NEG (NEG) Urine Bilirubin NEG (NEG) Urine Urobilinogen NEG (NEG) Urine Leukocyte Esterase NEG (NEG) Assessment & Plan Assessment * 37 yo F 14 weeks admitted to ICU with sepsis of unknown etiology. WBC 18.4, febrile to 37.9 C * Possible PID as patient presented to ED with severe abdominal pain although JUNIOR ENGINEER thinks unlikely per prog note * Influenza *antigen* negative (high rate of false negative results). PCR pending * UA w trace ketones, otherwise wnl * On ertapenem, vancomycin. * Per ED pharmacist, also plan to give azithromycin 1g po x1 (preferred to doxycycline for PID in ). * Vancomycin not likely needed for intra-abdominal source, but continue vancomycin at this time as source is unclear * considerations * Ertapenem is category B (minimal/no toxicity in rats at high doses , but also not extensively studied in humans) * Vancomycin not extensively studied in humans, but no significant risk to fetus is known. Can accumulate in amniotic fluid. * Renal * SCr and age indicate likely excellent clearance of vancomycin Vancomycin * Goal trough 15-20 mcg/mL * Will aim for lower end of this range despite ICU status as increased volume of distribution indicates that higher amounts of medication will be present outside of blood as compared to non- individuals at similar trough concentrations * Has similar half-life, but larger volume of distribution in , thus higher doses (but similar interval) may be required as compared to non- women * 1000 mg (11 mg/kg) administered in ED. * Will give additional 1000 mg dose now for total loading dose of 22 mg/kg * Does not need to be full 25 mg/kg as it will be admin as two separate doses over ~4 hr rather than usual 2 hr which will increase level * Will continue with 16 mg/kg x1 given ~12 hr after initial dose (~8 hr after 2nd part of loading dose) * Will obtain level before any other doses (other than above) are administered due to the following: * Altered pharmacokinetics in * Increased risk associated with subtherapeutic levels (2nd admission to ICU) * Increased risk associated with supratherapeutic levels (2nd toxicity to mother/fetus) Plan * Vancomycin 1000 mg IV x1 when admit to ICU (to be admin by 1630) * Vancomycin 1500 mg IV x1 12/21 @ 0000 * Vancomycin random level 12/21 @ 0800 (this will be an 8 hour level) Pharmacy will continue to follow and will adjust dose/frequency as necessary. Thank you
[2017-12-20] MEDS ORDERED: VANCOMYCIN INJ 1,000 MG in SODIUM CHLORIDE 0.9% 250ML 250 ML IV ONE (16:00)
[2017-12-20] MEDS ORDERED: ERTAPENEM IV 1 GM in SODIUM CHLOR 0.9% AD-VAN 50ML IV SCH (16:00)
[2017-12-20] MEDS: ACETAMINOPHEN 325 MG TAB PO PRN ×2 (16:13→21:00)
--- NOTE | 2017-12-20 16:28 | Surgery Consultation ---
Consultation Date of Consultation: Dec 20, 2017. Attending Physician: Antony Fernando MD Reason for Consultation: Abdominal pain (Jerilyn León ., DEMAR) History of Present Illness Aatri is a pleasant 37 year-old female who presented to emergency department today with complaint of sudden lower abdominal cramping pain around 7 am. Aarti states in the last few days she has noticed some pain on intercourse. States the pain on intercourse increased when they attempted again on Sunday evening and was concerned something was wrong. States other than intercourse she was not having abdominal cramping or pain at the time. States her pain is low and feels like labor pains. States when she sits down and applies pressure to lower abdomen the pain gets worse. Noticed increased nausea 2 days ago. No vomiting. Has also had a headache in the past day which has not gone away. She denies of any vomiting, chest pain, shortness of breath, upper abdominal pain, change in bowel habits, diarrhea, constipation, blood in stools, black/ tarry stools. States she is regular with bowel movements and last bowel movement was this morning and regular. Has had 4 other pregnancies without any complications. Has no significant medical history and does not take any home medications. States she was told she was borderline pre-diabetic but was advised to continue healthy diet and exercise and was not placed on any medications. Diabetes does run in the family. States she had a pelvic examination by her OBGYN about 3 weeks ago and was tested negative for PID. Had appendectomy. History of endometriosis and diagnostic laparoscopy about 11- [address] Hackett. No significant problems with endometriosis since. She states she has not be on any vitamins this as she has been unable to tolerate them. In the emergency room she had a ultrasound which showed a intrauterine viable with gestational age of fetus at 14 weeks. Her labs showed leukocytosis of 18.35K and she was febrile at 37.9. Tachycardic with heart rate in the 110's. LFTS within normal limits. POC lactic acid within normal limits. CXR showing no acute process. (Jerilyn León ., DEMAR) Past Medical/Surgical History Medical Problems: (1) Finger fracture, right Status: Acute (2) Sepsis Status: Acute (3) Throat pain Status: Acute (Jerilyn León PA-C) Family History No pertinent family history (Jerilyn León PA-C) No pertinent family history (Nohemi Arteaga MD) Social History Smoking Status: Never Smoker Marital Status: single Housing Status: lives with family (Jerilyn León PA-C) Allergies Coded Allergies: No Known Allergies (Verified , 12/20/17) Home Medications No Active Prescriptions or Reported Meds Current Inpatient Medications Current Inpatient Medications Medications (Trade) Dose Ordered Sig/Anshu Route Start Time Stop Time Status Last Admin Dose Admin Heparin Sodium (Porcine) (Heparin Sq 5000 Unit/0.5ml) 5,000 unit Q8 SQ 12/20/17 14:00 01/19/18 13:59 UNV Sodium Chloride 1,000 ml @ 50 mls/hr Q20H IV 12/20/17 12:54 01/19/18 12:53 12/20/17 16:03 50 MLS/HR Acetaminophen (Tylenol Tab) 650 mg Q4H PRN PO 12/20/17 13:00 01/19/18 12:59 12/20/17 16:13 650 MG Al Hydrox/Mg Hydrox/Simethicone (Maalox Max Susp) 15 ml Q4H PRN PO 12/20/17 13:00 01/19/18 12:59 Magnesium Hydroxide (Milk Of Magnesia Susp) 30 ml Q12H PRN PO 12/20/17 13:00 01/19/18 12:59 Ondansetron HCl (Zofran Inj) 4 mg Q6H PRN IV 12/20/17 13:00 01/19/18 12:59 Polyethylene (Miralax Powder Packet) 17 gm DAILY PRN PO 12/20/17 13:00 01/19/18 12:59 Ertapenem 1 gm/ Sodium Chloride 50 ml @ 100 mls/hr Q24H IV 12/20/17 16:00 12/30/17 15:59 12/20/17 16:00 100 MLS/HR Miscellaneous Information 1 ea UD PRN N/A 12/20/17 14:00 01/19/18 13:59 Miscellaneous Information (Consult) 1 ea UD PRN N/A 12/20/17 14:00 01/19/18 13:59 Morphine Sulfate (MoRPHine SULFATE INJ) 2 mg Q4H PRN IV 12/20/17 14:45 01/03/18 14:44 UNV Oseltamivir Phosphate (Tamiflu Cap) 75 mg BID PO 12/20/17 21:00 12/25/17 20:59 UNV Vancomycin HCl 1500 mg/Sodium Chloride 530 ml @ 200 mls/hr TODAY@0000 ONCE IV 12/21/17 00:00 12/21/17 02:38 Vancomycin HCl 1000 mg/Sodium Chloride 270 ml @ 125 mls/hr TODAY@1600 ONCE IV 12/20/17 16:00 12/20/17 18:09 Azithromycin (Zithromax Tab) 1,000 mg ONE ONCE PO 12/20/17 16:30 12/20/17 16:31 (Jerilyn León, PA-C) Review of Systems Constitutional: + fever, No chills, No sweats Respiratory: No shortness of breath Cardiovascular: No chest pain Abdomen: + pain, + nausea, No vomiting, No diarrhea, No constipation, No GI bleeding Genitourinary - Female: + problem reported (dysparunia), No dysuria, No urinary frequency, No urinary urgency, No urinary incontinence, No urinary retention, No hematuria, No vaginal bleeding Hematologic / Lymphatic: No abnormal bleeding/bruising Integumentary: No rash (Jerilyn León ., PA-C) Physical Exam Date Time Temp Pulse Resp B/P (MAP) Pulse Ox O2 Delivery O2 Flow Rate FiO2 12/20/17 15:39 38.1 100 18 111/70 100 Room Air 12/20/17 13:59 37.0 108 20 127/64 99 Room Air 12/20/17 13:15 104 12/20/17 11:59 119 19 119/75 99 Room Air 12/20/17 11:37 119 12/20/17 09:57 102 22 131/68 100 12/20/17 08:59 37.9 118 20 121/72 100 Room Air General Appearance: WD/WN, + mild distress Head: normocephalic, atraumatic Eyes: sclerae normal ENT: hearing grossly normal Neck: trachea midline Respiratory/Chest: lungs clear, normal breath sounds, no respiratory distress, no accessory muscle use Cardiovascular: no murmur, + tachycardia Abdomen/GI: soft, + tenderness (in the lower abdomen on mild palpation, no peritonitis or rigidity) Extremities/Musculoskelatal: normal inspection Neurologic/Psych: alert, normal mood/affect, oriented x 3 Skin: normal color, warm/dry, no rash (Jerilyn León ., DEMAR) Laboratory Results Last 24 Hours Test 12/20/17 09:31 12/20/17 09:35 12/20/17 09:42 12/20/17 09:46 White Blood Count 18.35 K/uL Red Blood Count 4.31 M/uL Hemoglobin 12.9 g/dL Hematocrit 36.9 % Mean Corpuscular Volume 85.6 fL Mean Corpuscular Hemoglobin 29.9 pg Mean Corpuscular Hemoglobin Concent 35.0 g/dl Platelet Count 202 K/uL Mean Platelet Volume 9.9 fL Neutrophils (%) (Auto) 88.9 % Lymphocytes (%) (Auto) 5.6 % Monocytes (%) (Auto) 4.7 % Eosinophils (%) (Auto) 0.3 % Basophils (%) (Auto) 0.1 % Neutrophils # (Auto) 16.32 K/uL Lymphocytes # (Auto) 1.02 K/uL Monocytes # (Auto) 0.86 K/uL Eosinophils # (Auto) 0.05 K/uL Basophils # (Auto) 0.02 K/uL RDW Standard Deviation 43.7 fL RDW Coefficient of Variation 13.9 % Immature Granulocyte % (Auto) 0.4 % Immature Granulocyte # (Auto) 0.08 K/uL Prothrombin Time 9.6 SECONDS Prothromb Time International Ratio 0.9 Activated Partial Thromboplast Time 25.6 SECONDS Partial Thromboplastin Ratio 1.0 Sodium Level 135 mmol/L Potassium Level 3.5 mmol/L Chloride Level 102 mmol/L Carbon Dioxide Level 25 mmol/L Anion Gap 8.0 mmol/L 18.0 mmol/L Blood Urea Nitrogen 8 mg/dl Creatinine 0.53 mg/dl Est Creatinine Clear Calc Drug Dose 169.2 ml/min Estimated GFR () 139.6 Estimated GFR (Non- 120.4 BUN/Creatinine Ratio 15.8 Random Glucose 84 mg/dl Calcium Level 8.6 mg/dl Total Bilirubin 0.3 mg/dl Aspartate Amino Transf (AST/SGOT) 9 U/L Alanine Aminotransferase (ALT/SGPT) 12 U/L Alkaline Phosphatase 49 U/L Total Protein 7.0 gm/dl Albumin 2.9 gm/dl Globulin 4.1 gm/dl Albumin/Globulin Ratio 0.7 Procalcitonin < 0.05 ng/ml Human Chorionic Gonadotropin, Quant 65243 mIU/mL Influenza Type A Antigen Neg for Influ A Influenza Type B Antigen Neg for Influ B Bedside Lactic Acid Venous 0.94 mmol/L Bedside Hemoglobin 12.6 g/dl Bedside Hematocrit 37 % Bedside Sodium 136 mEq/L Bedside Potassium 3.5 mEq/L Bedside Chloride 99 mEq/L Bedside Total CO2 24 mEq/l Bedside Blood Urea Nitrogen 8 mg/dl Bedside Creatinine 0.5 mg/dl Bedside Glucose (other) 91 mg/dl Bedside Ionized Calcium (Mini) 1.18 mmol/l Test 12/20/17 10:53 12/20/17 16:17 Urine Color YELLOW Urine Appearance CLEAR Urine pH 6.0 Urine Specific [place] 1.008 Urine Protein NEG Urine Glucose (UA) NEG Urine Ketones TRACE Urine Occult Blood NEG Urine Nitrite NEG Urine Bilirubin NEG Urine Urobilinogen NEG Urine Leukocyte Esterase NEG LIMITED (US) CLINICAL HISTORY: 37 years-old Female presenting with Pt feels is in labor, estimated date of delivery by last menstrual period 06/15/2018, no bleeding, cramping. TECHNIQUE: Real-time grayscale and M-mode Doppler ultrasound imaging of the pelvis was performed using a transabdominal probe. Color and spectral Doppler ultrasound imaging of the adnexa was not performed as the ovaries were not visualized. COMPARISON: 12/05/2017. FINDINGS: Uterus: Single live intrauterine . Femur length measures 14 mm corresponding to a gestational age of 14 weeks 1 day. [place]-rump length measures 83 mm corresponding to a gestational age of 14 weeks 1 day. heart rate 154 beats per minute. Anteverted uterus. Normal amniotic fluid volume. Posterior placental implantation. No perigestational fluid to suggest hemorrhage. Cervix long and closed, measuring 4.6 cm. Right adnexa: Right ovary not visualized. Left adnexa: Left ovary not visualized. (Jerilyn León ., PA-C) Assessment & Plan 37 year-old female with intrauterine at 14 weeks who presented to emergency department with a couple day history of dyspareunia and then sudden lower abdominal/pelvic pain and cramping that began this morning. 5 para 4. No history of abnormal pregnancies in the past. History of endometriosis 12 years ago. History of Appendectomy. Leukocytosis of 18K with tachycardia and concern for sepsis with unknown etiology. Abdominal examination is soft with tenderness in the lower abdomen bilaterally however no peritonitis, rigidity, guarding, or rebound. Her vitals signs on the floor showed Tmax of 38.1. with tachycardia in the low 100's. BP stable. Plan: Unclear etiology of patient's possible sepsis. Concern for intra-abdominal/ pelvic infection. Dr. Arteaga recommends transfer to tertiary facility given complexity of patient given active . If source of infection unable to be determined and progresses the patient could potentially become unstable and would need further treatment in which Dr. Arteaga does not routinely care for patients. Dr. Arteaga has discussed this with Dr. Acevedo (Hospitalist) Would continue IV fluids, IV antibiotics in the meantime until transfer. Thank you for involving us in the care of this patient. Dr. Arteaga has seen and examined patient, agrees with above. (Jerilyn León ., PA-C)
[2017-12-20] MEDS ORDERED: AZITHROMYCIN 250 MG TAB PO ONE (16:30)
--- NOTE | 2017-12-20 17:20 | Discharge Instructions ---
Discharge Instructions Date of Service Dec 20, 2017. Admission Reason for Admission: Abdominal Pain Discharge Discharge Diagnosis / Problem: acute abdomen Discharge Goals Goal(s): Improve function Activity Recommendations Activity Limitations: resume your previous activity . Current Hospital Diet Patient's current hospital diet: Regular Diet Discharge Diet Recommended Diet: Regular Diet Pending Studies Studies pending at discharge: no Laboratory Results Hemoglobin A1c Test 11/30/17 10:55 Range/Units Estimated Average Glucose 105 mg/dl Hemoglobin A1c 5.3 4.5-5.6 % Medical Emergencies . Who to Call and When: Medical Emergencies: If at any time you feel your situation is an emergency, please call 911 immediately. . Non-Emergent Contact Non-Emergency issues call your: Primary Care Provider . . "Provider Documentation" section prepared by Antony Quevedo. . VTE Core Measure Inpt VTE Proph given/why not?: Unfractionated heparin SQ
--- NOTE | 2017-12-20 18:27 | Discharge Summary ---
Discharge Summary Date of Service Dec 20, 2017. Discharge Summary Admission Date: Dec 20, 2017 at 13:03 Discharge Date: Dec 20, 2017 Discharge Disposition: Acute care facility Principal Diagnosis: Sepsis/acute abdomen / Immunizations: Have You Had Influenza Vaccine: Unknown History of Tetanus Vaccine?: Unknown History of Pneumococcal: Unknown History of Hepatitis B Vaccine: Unknown Hospital Course 37 years old female para 4 5, A 0, 4 months who was in her regular state of health until a few days ago. Her complaint started with mild pain during sexual intercourse in the pelvic area. 2 days ago pain became more intense and she was unable to tolerate her dyspareunia Today she woke up from sleep with severe lower abdominal pain. 10 out of 10. Associated with abdominal cramps and muscle ache. Denies any upper respiratory tract symptoms. She presented to the hospital and she was found to have high temperature of 37.9 All her previous pregnancies were healthy, she did not have any complication. This up until now was normal except for exaggerated nausea and vomiting. Assessment Lower abdominal pain/cramping/dyspareunia 14 weeks Severe sepsis present on admission with no evident source of infection Plan For fear of her sudden deterioration seen by Surgeon Dr. Arteaga who recommends transfer to tertiary facility given complexity of patient and active . Initially she was covered for PID with vancomycin, received 1 dose of azithromycin, and cefepime Obstetric consultation was obtained by Dr. Rubalcava, based on his medical physical exam and probability he did not think she has PID, especially that it is rare in Ultrasound abdomen was normal Antibiotics were switched to ertapenem and Vanco. She was also covered by Tamiflu empirically Blood cultures/urine cultures obtained Rapid flu was negative but patient is empirically on Tamiflu, PCR was sent Consult infectious diseases So because the pain is localized in the abdominal area surgical consult was obtained We will place her on DVT prophylaxis heparin subcu, as risk of DVT is higher in and she is bed resting all the time At this point myself, Dr. Stanton, and Dr. Rubalcava did not think a CT abdomen would be warranted since her vitals are more stabilized. Also ordered pro-calcitonin patient will be transferred to [facility] , accepted by Dr. Gimenez Total Time Spent: Greater than 30 minutes This includes examination of the patient, discharge planning, medication reconciliation, and communication with other providers. Discharge Instructions Please refer to the electronic Patient Visit Report (Discharge Instructions) for additional information.
--- NOTE | 2017-12-20 18:59 | OB/GYN Progress Note ---
DIRECTOR ASSET Progress Note Date of Service Dec 20, 2017. Subjective conversation w/ patient (pt states pain has lessen, but headache with fever and chills), physical exam (declined by patient) Objective Vital Signs Date Time Temp Pulse Resp B/P (MAP) Pulse Ox O2 Delivery O2 Flow Rate FiO2 12/20/17 16:56 38.3 12/20/17 15:39 38.1 100 18 111/70 100 Room Air 12/20/17 13:59 37.0 108 20 127/64 99 Room Air 12/20/17 13:15 104 12/20/17 11:59 119 19 119/75 99 Room Air 12/20/17 11:37 119 12/20/17 09:57 102 22 131/68 100 12/20/17 08:59 37.9 118 20 121/72 100 Room Air Laboratory Results Last 24 Hours Test 12/20/17 00:00 12/20/17 09:31 12/20/17 09:35 12/20/17 09:42 White Blood Count 18.35 K/uL Red Blood Count 4.31 M/uL Hemoglobin 12.9 g/dL Hematocrit 36.9 % Mean Corpuscular Volume 85.6 fL Mean Corpuscular Hemoglobin 29.9 pg Mean Corpuscular Hemoglobin Concent 35.0 g/dl Platelet Count 202 K/uL Mean Platelet Volume 9.9 fL Neutrophils (%) (Auto) 88.9 % Lymphocytes (%) (Auto) 5.6 % Monocytes (%) (Auto) 4.7 % Eosinophils (%) (Auto) 0.3 % Basophils (%) (Auto) 0.1 % Neutrophils # (Auto) 16.32 K/uL Lymphocytes # (Auto) 1.02 K/uL Monocytes # (Auto) 0.86 K/uL Eosinophils # (Auto) 0.05 K/uL Basophils # (Auto) 0.02 K/uL RDW Standard Deviation 43.7 fL RDW Coefficient of Variation 13.9 % Immature Granulocyte % (Auto) 0.4 % Immature Granulocyte # (Auto) 0.08 K/uL Prothrombin Time 9.6 SECONDS Prothromb Time International Ratio 0.9 Activated Partial Thromboplast Time 25.6 SECONDS Partial Thromboplastin Ratio 1.0 Sodium Level 135 mmol/L Potassium Level 3.5 mmol/L Chloride Level 102 mmol/L Carbon Dioxide Level 25 mmol/L Anion Gap 8.0 mmol/L Blood Urea Nitrogen 8 mg/dl Creatinine 0.53 mg/dl Est Creatinine Clear Calc Drug Dose 169.2 ml/min Estimated GFR () 139.6 Estimated GFR (Non- 120.4 BUN/Creatinine Ratio 15.8 Random Glucose 84 mg/dl Calcium Level 8.6 mg/dl Total Bilirubin 0.3 mg/dl Aspartate Amino Transf (AST/SGOT) 9 U/L Alanine Aminotransferase (ALT/SGPT) 12 U/L Alkaline Phosphatase 49 U/L Total Protein 7.0 gm/dl Albumin 2.9 gm/dl Globulin 4.1 gm/dl Albumin/Globulin Ratio 0.7 Procalcitonin < 0.05 ng/ml Human Chorionic Gonadotropin, Quant 95213 mIU/mL Influenza Type A Antigen Neg for Influ A Influenza Type B Antigen Neg for Influ B Bedside Lactic Acid Venous 0.94 mmol/L Test 12/20/17 09:46 12/20/17 10:53 Bedside Hemoglobin 12.6 g/dl Bedside Hematocrit 37 % Bedside Sodium 136 mEq/L Bedside Potassium 3.5 mEq/L Bedside Chloride 99 mEq/L Bedside Total CO2 24 mEq/l Anion Gap 18.0 mmol/L Bedside Blood Urea Nitrogen 8 mg/dl Bedside Creatinine 0.5 mg/dl Bedside Glucose (other) 91 mg/dl Bedside Ionized Calcium (Mini) 1.18 mmol/l Urine Color YELLOW Urine Appearance CLEAR Urine pH 6.0 Urine Specific [place] 1.008 Urine Protein NEG Urine Glucose (UA) NEG Urine Ketones TRACE Urine Occult Blood NEG Urine Nitrite NEG Urine Bilirubin NEG Urine Urobilinogen NEG Urine Leukocyte Esterase NEG Assessment and Plan Continue Routine Care: - etiology to fever and WBC unknown - do not feel this is related to the - hospitalist service feels uncomfortable caring for patient and are transferring o [place] - will defer to the hospitalist - pt to follow-up for the rest of her OB care
[2017-12-20 19:12] LABS: INFLUENZA A PCR Neg for Influ A (NEG); INFLUENZA B PCR Neg for Influ B (NEG)
[2017-12-20] MEDS: MoRPHine SULFATE 2 MG/ML CARP IV PRN ×2 (20:19→23:50)
[2017-12-20] MEDS ORDERED: OSELTAMIVIR PHOSPHATE 75 MG CAP PO SCH (21:00)
[2017-12-20] MEDS ORDERED: HEPARIN SOD 5000 UNIT/0.5 ML CARP SQ SCH (22:00)
[2017-12-21] MEDS ORDERED: VANCOMYCIN INJ 1,500 MG in SODIUM CHLORIDE 0.9% 500ML 500 ML IV ONE ×2
== END 2017-12-21 00:58 | disposition short-term general hospital (02) | DRG 781 ==
LOC: C.EDB 08:53 → C.2T 13:03 → EDBEDREQ 13:18 → ENRESERV 15:09
PROVIDERS: ADMIT Internal Medicine; ATTEND Internal Medicine
DX: O98.812 Other maternal infectious and parasitic diseases complicating pregnancy, second trimester (principal); A41.9 Sepsis, unspecified organism; O26.892 Other specified pregnancy related conditions, second trimester; R10.84 Generalized abdominal pain; O99.89 Other specified diseases and conditions complicating pregnancy, childbirth and the puerperium; N94.10 Unspecified dyspareunia; Z3A.14 14 weeks gestation of pregnancy; Z51.81 Encounter for therapeutic drug level monitoring

== ENCOUNTER → 2017-12-28 | Outpatient (CLI) | payer OTHER | END | disposition home or self-care (01) | LOC: C.LAB1850 11:13 | PROVIDERS: ATTEND Obstetrics & Gynecology | DX: O09.522 Supervision of elderly multigravida, second trimester (principal); Z3A.00 Weeks of gestation of pregnancy not specified ==

== ENCOUNTER → 2018-03-22 | Outpatient (CLI) | payer OTHER ==
[2018-03-22 12:39] LABS: HEMATOCRIT 35.7 % (37-47); HEMOGLOBIN 12.1 g/dL (12.0-16.0)
== END | disposition home or self-care (01) ==
LOC: C.LAB1850 10:18
PROVIDERS: ATTEND Obstetrics & Gynecology
DX: O09.523 Supervision of elderly multigravida, third trimester (principal); Z3A.00 Weeks of gestation of pregnancy not specified

== ENCOUNTER → 2018-03-22 | Outpatient (CLI) | payer OTHER | END | disposition home or self-care (01) | LOC: C.LABSPEC 13:26 | PROVIDERS: ATTEND Obstetrics & Gynecology | DX: O09.523 Supervision of elderly multigravida, third trimester (principal); Z3A.00 Weeks of gestation of pregnancy not specified ==

== ENCOUNTER → 2018-05-24 | Outpatient (CLI) | payer OTHER ==
[~2018-05-24] MED LIST changes: -CALC500C3; -PEPCID; +PREN0.12; +RANI150T3 PO
== END | disposition home or self-care (01) ==
LOC: C.LABSPEC 10:48
PROVIDERS: ATTEND Obstetrics & Gynecology
DX: O09.523 Supervision of elderly multigravida, third trimester (principal)

== ENCOUNTER 2018-06-02 01:47 | Outpatient (CLI) | payer OTHER ==
[~2018-06-02] VITALS: Ht 165.1 cm; Wt 106.0 kg
[2018-06-02 02:48] VITALS: Ht 165.1 cm; Wt 106.0 kg
[2018-06-02] MEDS ORDERED: PREN0.12 (02:50)
[2018-06-02] MEDS ORDERED: RANI150T3 PO (02:51)
== END 2018-06-02 04:22 | disposition home or self-care (01) ==
LOC: C.OPB 01:47 → C.LD 01:47 → C.OPB 04:22
PROVIDERS: ATTEND Obstetrics & Gynecology
DX: O62.9 Abnormality of forces of labor, unspecified (principal); Z3A.00 Weeks of gestation of pregnancy not specified

== ENCOUNTER 2018-06-10 14:05 | Outpatient (CLI) | payer OTHER ==
[2018-06-10] MEDS ORDERED: ACETAMINOPHEN 325 MG TAB PO PRN (15:30)
[2018-06-10 15:54] LABS: BASO % 0.2 %; BASO ABS # 0.02 K/uL (0-0.2); EOS % 0.8 %; HEMATOCRIT 36.5 % (37-47); HEMOGLOBIN 12.1 g/dL (12.0-16.0); IG# 0.04 K/uL (0.00-0.02); LYMPH % 12.2 %; LYMPH ABS # 1.55 K/uL (1.2-3.4); MEAN CELL VOLUME 86.7 fL (80-100); MEAN CORPUSCULAR HEMOGLOBIN 28.7 pg (25-34); MEAN CORPUSCULAR HGB CONC 33.2 g/dl (32-36); MEAN PLATELET VOLUME 10.6 fL (7.4-10.4); MONO % 3.8 %; MONO ABS # 0.48 K/uL (0.11-0.59); NEUT % 82.7 %; NEUT ABS # 10.53 K/uL (1.4-6.5); PLATELET COUNT 198 K/uL (130-400); RED CELL DISTRIBUTION WIDTH CV 13.6 % (11.5-14.5); RED CELL DISTRIBUTION WIDTH SD 42.7 fL (36.4-46.3); WHITE BLOOD COUNT 12.72 K/uL (4.8-10.8)
[2018-06-10 16:03] LABS: INR 0.9 (0.9-1.1)
[2018-06-10 16:14] LABS: ALT/SGPT 12 U/L (12-78); AST/SGOT 11 U/L (15-37); CREATININE 0.62 mg/dl (0.60-1.20)
== END 2018-06-10 17:00 | disposition home or self-care (01) ==
LOC: C.OPB 14:05 → C.LD 14:06 → C.OPB 17:00
PROVIDERS: ATTEND Obstetrics & Gynecology
DX: O36.8130 Decreased fetal movements, third trimester, not applicable or unspecified (principal); R51 Headache; Z3A.00 Weeks of gestation of pregnancy not specified

== ENCOUNTER 2018-06-14 16:30 | Inpatient (IN) | payer OTHER ==
[~2018-06-14] VITALS: Ht 170.2 cm; Wt 107.5 kg
[2018-06-14] MEDS ORDERED: LACTATED RINGER'S 1000ML 1,000 ML IV PRN (16:43)
[2018-06-14] MEDS ORDERED: LACTATED RINGER'S 1000ML 1,000 ML IV SCH (16:43)
[2018-06-14] MEDS ORDERED: PENICILLIN G POTASSIUM IV 3 MU in DEXTROSE 5% 100ML 100 ML IV PRN (16:45)
[2018-06-14] MEDS ORDERED: PENICILLIN G POTASSIUM IV 6 MU in DEXTROSE 5% 250ML 250 ML IV ONE (16:45)
[2018-06-14 17:21] LABS: HEMATOCRIT 36.6 % (37-47); HEMOGLOBIN 12.3 g/dL (12.0-16.0); MEAN CELL VOLUME 86.9 fL (80-100); MEAN CORPUSCULAR HEMOGLOBIN 29.2 pg (25-34); MEAN CORPUSCULAR HGB CONC 33.6 g/dl (32-36); MEAN PLATELET VOLUME 10.9 fL (7.4-10.4); PLATELET COUNT 220 K/uL (130-400); RED CELL DISTRIBUTION WIDTH CV 13.8 % (11.5-14.5); RED CELL DISTRIBUTION WIDTH SD 43.6 fL (36.4-46.3); WHITE BLOOD COUNT 11.07 K/uL (4.8-10.8)
[2018-06-14 17:39] VITALS: Ht 170.2 cm; Wt 107.5 kg
[2018-06-14] MEDS ORDERED: CALCIUM CARBONATE 500 MG CHEWABLE PO PRN (22:45)
[2018-06-14] MEDS ORDERED: RANITIDINE HCL 150 MG TAB PO ONE (22:45)
[2018-06-14] MEDS ORDERED: LACTATED RINGER'S 1000ML 500 ML IV PRN (23:09)
[2018-06-14] MEDS ORDERED: OXYTOCIN 30 UNITS/500ML NSS IV PRN (23:15)
[2018-06-15 00:28] LABS: ALBUMIN 2.6 gm/dl (3.4-5.0); CALCIUM 8.5 mg/dl (8.5-10.1); CREATININE 0.61 mg/dl (0.60-1.20); POTASSIUM 3.5 mmol/L (3.5-5.1); TOTAL PROTEIN 6.9 gm/dl (6.4-8.2); URIC ACID 3.5 mg/dl (2.6-7.2)
[2018-06-15] MEDS ORDERED: BENZOCAINE 20% AER SPR 82.5 GM CAN EXT PRN (01:15)
[2018-06-15] MEDS ORDERED: ACETAMINOPHEN 325 MG TAB PO PRN (01:15)
[2018-06-15] MEDS ORDERED: SUPERCREAM 0.870 % 15GM JAR EXT PRN (01:15)
[2018-06-15] MEDS ORDERED: HYDROCORTISONE ACETATE 25 MG SUPP PR PRN (01:15)
[2018-06-15] MEDS ORDERED: OXYTOCIN 30 UNITS/500ML NSS IV PRN (01:15)
[2018-06-15] MEDS ORDERED: LANOLIN OINT EXT PRN (01:15)
[2018-06-15] MEDS ORDERED: OXYCODONE/ACETAMINOPHEN 5-325 TAB PO PRN (01:15)
--- NOTE | 2018-06-15 01:15 | Vaginal Delivery Summary ---
Vaginal Delivery Summary Predelivery diagnoses: 38-year-old at 40 weeks 0 days, active labor, advanced maternal age, group B strep positive Postdelivery diagnoses: Same Procedure: Spontaneous vaginal delivery Surgeon: Dr. Lott Complications: None Estimated blood loss: 300 mL Findings: Viable female , Apgars 8 and 9. Weight pending, please see nursery records. Delivery summary: The patient progressed to complete without anesthesia. She then began to push she spontaneously vaginally delivered a viable female from the cephalic presentation. Head delivered in the right occiput anterior position, nuchal cord 1 was noted and easily reduced, the anterior shoulder delivered followed by the posterior shoulder followed by the body. The baby is placed on mother's abdomen, the cord was doubly clamped and cut, the baby was handed off to the waiting pediatrics team. Cord blood was collected for cord blood donation. The placenta was delivered spontaneously intact with three-vessel cord. Pitocin was given, the uterus became firm. The bladder was emptied with a red rubber catheter for 200 cc of clear yellow yellow urine. The uterus and vagina were swept of all clots and debris. The cervix vagina and perineum were inspected, no lacerations were noted. Excellent hemostasis was observed. The mother, baby are recovering in stable and good condition in the room. Sponge and instrument counts were correct at the conclusion of the case.
[2018-06-15 03:00] VITALS: BP 115/74; PULSE 90; TEMP 36.6; O2SAT 97
[2018-06-15] MEDS: IBUPROFEN 600 MG TAB PO PRN ×4 (04:27→21:51)
[2018-06-15 09:00] VITALS: BP 119/75; PULSE 73; TEMP 36.5; O2SAT 98
[2018-06-15] MEDS: DOCUSATE SODIUM 100 MG CAP PO SCH ×2 (09:05→19:41)
[2018-06-15 11:40] VITALS: BP 114/75; PULSE 74; TEMP 36.6; O2SAT 97
[2018-06-15 16:05] VITALS: BP 133/76; PULSE 78; TEMP 36.5; O2SAT 96
[2018-06-15 19:40] VITALS: BP 123/83; PULSE 83; TEMP 36.8; O2SAT 96
[2018-06-16 00:10] VITALS: BP 126/81; PULSE 85; TEMP 36.8
[2018-06-16] MEDS: IBUPROFEN 600 MG TAB PO PRN ×2 (03:36→08:53)
[2018-06-16 07:02] LABS: HEMATOCRIT 34.1 % (37-47); HEMOGLOBIN 11.3 g/dL (12.0-16.0)
[2018-06-16 07:45] VITALS: BP 121/75; PULSE 75; TEMP 36.9; O2SAT 98
[2018-06-16] MEDS: DOCUSATE SODIUM 100 MG CAP PO SCH (08:53)
--- NOTE | 2018-06-16 09:06 | Progress Note ---
Subjective Jun 16, 2018. Subjective conversation w/ patient, physical exam, lab review Ambulation: ambulating normally Voiding: no voiding problems Passing Gas: Yes Diet Tolerance: Regular Diet Lochia: Small Feeding Type: Breast Feeding Pain: controlled Objective Vital Signs Date Time Temp Pulse Resp B/P (MAP) Pulse Ox O2 Delivery O2 Flow Rate FiO2 06/16/18 00:10 36.8 85 18 126/81 (96) Room Air 06/16/18 00:10 Room Air 06/15/18 19:40 36.8 83 20 123/83 (96) 96 Room Air 06/15/18 16:05 96 Room Air 06/15/18 16:05 36.5 78 18 133/76 (95) 96 Room Air 06/15/18 11:40 36.6 74 18 114/75 (88) 97 Room Air Physical Exam General Appearance: WELL-APPEARING, WD/WN, NO APPARENT DISTRESS Abdomen: non tender, soft Fundus: Firm, Non-Tender, Relation to Umbilicus (at u) Extremities: non-tender, normal inspection, no pedal edema Laboratory Results Last 24 Hours Test 06/16/18 06:25 Hemoglobin 11.3 g/dL Hematocrit 34.1 % Assessment and Plan Problem List Medical Problems: (1) Finger fracture, right Status: Acute (2) Sepsis Status: Acute (3) Throat pain Status: Acute Post- Day#: 1 Continue Routine Care: Doing well. Routine care. Plan d/c. Instructions given.
--- NOTE | 2018-06-16 09:09 | Discharge Instructions ---
Discharge Instructions Date of Service Jun 16, 2018. Admission Reason for Admission: Check Rupture Of Membranes Discharge Discharge Diagnosis / Problem: s/p vaginal delivery Discharge Goals Goal(s): Routine recovery after delivery Medications Continue Dispensed Medications: supercream, dermaplast, tucks, lansinoh Activity Recommendations Activity Limitations: per Instructions/Follow-up section . Instructions / Follow-Up Instructions / Follow-Up ACTIVITY RECOMMENDATIONS: * Gradual return to full activity over the next 2-3 weeks. * No lifting - nothing heavier than baby over the next 2-3 weeks. * Do not engage in vigorous exercise, sexual activity or sports until cleared by your physician. * Do not drive or operate any motorized equipment until cleared by your physician. * You may shower/bathe daily. MEDICATIONS: For discomfort or pain, you may use Acetaminophen (Tylenol), Ibuprofen (Advil), or Naproxen (Aleve) following the package directions. For constipation you may use Colace following the package directions. BREAST CARE: If you are not breast feeding: * Wear a supportive bra 24 hours a day for one to two weeks. * Avoid stimulating your breasts and nipples as much as possible during the first few weeks after delivery. * When taking a shower, have the warm water hit your back, not breasts. * When your breasts feel full, apply ice packs. Usually three to four times a day helps ease the discomfort. * Take a mild pain medication (Tylenol / Motrin) when you are uncomfortable. If breast feeding: * Use breast milk to lubricate nipples. Lansinoh cream may be used for sore nipples. You do not need to remove cream prior to breast feeding. If using a different brand of cream, check the label for directions regarding removal of cream prior to nursing. * Wear a supportive bra. * If having problems with breasts or breast feeding, call a storage consultant or your health care provider. EPISIOTOMY CARE: After delivery, if you have an episiotomy (stitches), the following steps will ease discomfort and aid healing. * For the first 24 hours after delivery, place ice packs next to your episiotomy to help reduce swelling. * After the first 24 hour-period, sitz baths, either portable or in the tub, are suggested. A shower with a shower arm sprayed over the episiotomy may be comforting. * Peace care should be done after each voiding and bowel movement. Squirt warm water from a plastic bottle over the perineum (region of the body between the anus and urinary opening) and pat dry. * Use Dermoplast to ease discomfort. Shake container. Pipestem directly over the episiotomy. Place a Tucks on a clean sanitary pad next to your episiotomy. SPECIAL CARE INSTRUCTIONS: When you are discharged from the hospital, it is important for you to follow the instructions listed below: * During the first week at home, you should be able to care for yourself and your baby. In addition, the usual light household activities are encouraged. * Limit your activities to the way you feel. Do not try to clean the house or move furniture. Be sensible. * If you actively engage in sports and have done so up until the time of your delivery, you may resume these activities as soon as you feel able. This may take up to one month or even longer. Use good judgment. * Continue to take your vitamins for at least six weeks after the of your baby. * Your diet need not be limited unless you were on a special diet before your delivery. Breast-feeding mothers need around 2500 calories per day and at least 64-80 ounces of fluid per day (8 to 10 glasses). * You should eat foods from the four major food groups. Crash diets or fad diets are to be avoided. Eating lean meats, fresh fruits and vegetables, low-fat dairy products, high fiber foods and a regular exercise program, will help you get back to your pre- weight without putting your health at risk. * Constipation is sometimes a problem after delivery. Take a mild laxative as needed. If breast feeding, Milk of Magnesia is acceptable to use. You may use a suppository or Fleets enema if no episiotomy. * A daily shower or tub bath is suggested. Be sure to thoroughly and gently dry the perineum. * A bloody vaginal discharge will usually continue until around four weeks post . A small amount of bleeding may continue for as long as six weeks. Vaginal discharge changes from the bright red bleeding after delivery to pink then brownish and finally yellowish-pink before becoming white and disappearing. * Bleeding may increase with activity. Your first period may come in 4-8 weeks. If you are breast feeding, your period may be delayed even longer. * [place] (sex) can begin whenever both you and your partner feel comfortable and do not have any form of genital infection. It is recommended that you wait at least six weeks for internal and external healing to occur. If you have questions, please talk to your health care practitioner. A condom should be used to prevent infection and . * Foreplay, gentle intercourse and lubrication is very important the first several times to prevent pain. A water-based lubricant such as K-Y jelly or Astroglide may be used. * If you have RH negative blood and your baby is RH positive, you will receive RHOGAM by injection prior to discharge. The nurse will give you a card to keep with you that has the date and place that you received RHOGAM after delivery. * During your care, you had a Rubella screen done to check for the presence of rubella antibodies in your blood. If your test was negative, you will receive a Rubella vaccine prior to discharge. This vaccine may cause a fever, soreness at the injection site and flu-like symptoms. If these symptoms persist, notify your health care practitioner. is not advised for one month after a Rubella vaccine. * Verbalizes understanding of car seat law as reviewed with patient nursing. * Car Seat hand-out given and reviewed with patient by nursing. * Shaken baby information reviewed with patient by nursing. Call you doctor if: * Heavy bleeding (saturating several pads an hour) or passing clots the size of your fist. * A fever >101 degrees F (38.3 degrees C) on two occasions four hours apart and /or chills. * Unusual pain in the pelvic or vaginal areas. * "Baby Blues" lasting longer than two weeks. If you have any questions or concerns, call your health care practitioner at . FOLLOW UP VISIT: * Please call the office at to schedule a 6 week examination. It is important you keep this appointment. It is important for you to make arrangements for either yearly or twice yearly check-ups thereafter. Current Hospital Diet Patient's current hospital diet: Regular OB Diet Discharge Diet Recommended Diet: Regular Diet Pending Studies Studies pending at discharge: no Medical Emergencies . Who to Call and When: Medical Emergencies: If at any time you feel your situation is an emergency, please call 911 immediately. . Non-Emergent Contact Non-Emergency issues call your: Geological Engineer . . "Provider Documentation" section prepared by Lesia Allison. .
[2018-06-16 12:50] VITALS: BP_DIAS 75; PULSE 75; TEMP 36.9
[2018-06-16] MEDS ORDERED: BISACODYL 5 MG TABEC PO SCH (20:00)
== END 2018-06-16 12:50 | disposition home or self-care (01) | DRG 775 ==
LOC: C.LD 16:30 → C.OPB 16:30 → C.LD 16:44 → C.OBG 06-15 03:01
PROVIDERS: ADMIT Obstetrics & Gynecology; ATTEND Obstetrics & Gynecology
PROC: 10907ZC Drainage of Amniotic Fluid, Therapeutic from Products of Conception, Via Natural or Artificial Opening (ICD-10-PCS; 2018-06-14)
PROC: 10E0XZZ Delivery of Products of Conception, External Approach (ICD-10-PCS; principal; 2018-06-15)
DX: O69.81X0 Labor and delivery complicated by cord around neck, without compression, not applicable or unspecified (principal); O09.523 Supervision of elderly multigravida, third trimester; O99.824 Streptococcus B carrier state complicating childbirth; Z3A.40 40 weeks gestation of pregnancy; Z37.0 Single live birth